=== PATIENT | female | born 1960 | race Caucasian/White ===

== ENCOUNTER 2018-08-22 16:50 | Emergency (ER) | payer OTHER ==
[2018-08-22 17:01] VITALS: BP 142/82
--- NOTE | 2018-08-22 17:50 | UC ---
Dental HPI - HPI Summary HPI Summary: 57 y/o female presents to the urgent care c/o left side of upper jaw pain w/ left ear pain since yesterday. Pt reports she has been with URI symptoms, nasal congestion, yellowish nasal discharge and PND for the past 8-10 days. Pt also has upper dentures and she is not sure if pain is in her upper palate or mainly in the ear. Pain is 4/10 associated w/ decrease hearing. She has not taken anything to alleviate symptoms. Pt states she was since by the dentist for dental hygiene. Pt denies fever, trismus, TMJ pain, VERA, dizziness, SOB, chest pain, abdominal pain, N/v/d. - History of Current Complaint Chief Complaint: UCGeneralIllness Stated Complaint: JAW PAIN Time Seen by Provider: 08/22/18 17:26 Hx Obtained From: Patient ?: No - Menopausal Onset/Duration: Gradual Onset, Lasting Days - 1 day, Still Present, Worse Since - today Severity: Moderate Pain Intensity: 4 Pain Scale Used: 0-10 Numeric Aggravating Factor(s): Chewing Alleviating Factor(s): Nothing Related History: Swelling - mild - Allergies/Home Medications Home Medications: Home Medications Lisinopril 10 mg PO DAILY WITH MEAL 08/22/18 [History Confirmed 08/22/18] PMH/Surg Hx/FS Hx/Imm Hx Previously Healthy: Yes Endocrine History: Dyslipidemia Cardiovascular History: Hypertension - Surgical History Surgical History: Yes Surgery Procedure, Year, and Place: 1987 ovarian cysts. 1997 gall bladder. instestinal blockage withreduction 1997. unsucessful tubal - Family History Known Family History: Positive: Hypertension, Diabetes - Social History Occupation: Employed Full-time Lives: With Family Alcohol Use: Weekly Substance Use Type: None Smoking Status (MU): Former Smoker When Did the Patient Quit Smoking/Using Tobacco: 16 yrs ago Review of Systems All Other Systems Reviewed And Are Negative: Yes Constitutional: Positive: Negative Skin: Positive: Negative Eyes: Positive: Negative ENT: Positive: Dental Pain - left upper jaw pain, Ear Ache - left ear pain, Nasal Discharge - clear, Sinus Congestion Respiratory: Positive: Negative Cardiovascular: Positive: Negative Gastrointestinal: Positive: Negative Genitourinary: Positive: Negative Motor: Positive: Negative Neurovascular: Positive: Negative Musculoskeletal: Positive: Negative Neurological: Positive: Negative Psychological: Positive: Negative Is Patient Immunocompromised?: No Physical Exam - Summary Physical Exam Summary: Vital Signs Reviewed: Yes General: Well-Appearing, Well-Nourished female sitting in the examining table w/ o any respiratory or pain distress Eyes: Positive: Conjunctiva Clear - PERRLA, EOMI, ENT: Positive: Normal ENT inspection, Hearing grossly normal, Pharynx normal, Left TM injected with erythema and crusting yellowish discharge, Rt TM WNL. - B/ L external ear canals clear,. Negative: Tonsillar swelling, Tonsillar exudate, Trismus Dental: Positive: Gross Decay/Caries w/ fracture molar #14 after removal of partail denture with possible Abscess due to gingival swelling and erythema, tender to percussion. involves tissue surrounding this molar #14, Cervical Lymphadenopathy - anterior Respiratory: Positive: Chest non-tender, Lungs clear, Normal breath sounds, No respiratory distress Cardiovascular: Positive: RRR, No Murmur, Pulses Normal, Brisk Capillary Refill Abdomen Description: Positive: Nontender, No Organomegaly, Soft. Negative: CVA Tenderness (R), CVA Tenderness (L) Bowel Sounds: Positive: Present Musculoskeletal: Positive: Strength Intact, ROM Intact, No Edema Neurological Exam: Normal Psychological Exam: Normal Skin Exam: Normal Triage Information Reviewed: Yes Vital Signs: Initial Vital Signs Temp 98.5 F 08/22/18 16:54 Pulse 91 08/22/18 16:54 Resp 18 08/22/18 16:54 BP 142/82 08/22/18 16:54 Pulse Ox 98 08/22/18 16:54 Dental Complaint Course/Dx - Course Course Of Treatment: 57 y/o female presents to the urgent care c/o left side of upper jaw pain w/ left ear pain since yesterday. Pt reports she has been with URI symptoms, nasal congestion, yellowish nasal discharge and PND for the past 8 -10 days. Pt also has upper dentures and she is not sure if pain is in her upper palate or mainly in the ear. Pain is 4/10 associated w/ decrease hearing. She has not taken anything to alleviate symptoms. Pt states she was since by the dentist for dental hygiene. Pt denies fever, trismus, TMJ pain, VERA, dizziness, SOB, chest pain, abdominal pain, N/v/d.Pt w/ possible dental abscess around molar #14 and left otitis Media on examination.Pt Rx Amoxicillin PO and Naproxen PO for pain. Pt strongly advised to f/u with Dentist as soon as possible further evaluation and treatment and ENT if not improvent on her symtoms. Pt's BP is elevated today advised to decrease salt in diet, monitor BP and f/u with PCP for further management. Pt understood and agreed with plan of care. Left the clinic ambulating. - Differential Dx/Diagnosis Differential Diagnosis/Dx: Dental Abscess, Gingivitis, Odontogenic Pain, Peridontic Disease, Peritonsillar Abcess, Pharyngitis, TMJ Syndrome, Tonsillitis Provider Diagnosis: Dental abscess, Left otitis media, Uncontrolled hypertension Discharge - Sign-Out/Discharge Documenting (check all that apply): Patient Departure - D/C home All imaging exams completed and their final reports reviewed: No Studies - Discharge Plan Condition: Stable Disposition: HOME Prescriptions: Amoxicillin PO (*) [Amoxicillin 875 MG (*)] 875 mg PO BID #20 tab Ibuprofen TAB* [Motrin TAB* 600 MG] 600 mg PO Q6H PRN #30 tab PRN Reason: Pain Patient Education Materials: Dental Abscess (ED), Ear Infection (ED) Referrals: Colton Martinez MD [Primary Care Provider] - 2 Days Pancho Quach MD [Medical Doctor] - 3 Days Additional Instructions: 1-Please take full course of antibiotic to avoid resistance to treat your left otitis Media and possible dental abscess. Please take yogurt with probiotics or Culturelle to protect your GI system 2- Take Ibuprofen PO q6-8hrs instructed after meals to alleviate pain and swelling. 3- F/u with your Dentist or ENT DR Quach if not improvement of symptoms for further evaluation and treatment. 4-Your BP is elevated today. please decrease salt in your diet, monitor BP and if it continues to be elevated please f/u with your PCP for further management. - Billing Disposition and Condition Condition: STABLE Disposition: Home
== END 2018-08-22 18:02 | disposition home or self-care (01) ==
LOC: UCEAST 16:50
DX: K04.7 Periapical abscess without sinus (principal); H66.92 Otitis media, unspecified, left ear; I10 Essential (primary) hypertension; Z87.891 Personal history of nicotine dependence
CPT/HCPCS: 99202; G0463

== ENCOUNTER 2018-11-09 12:43 | Day surgery (SDC) | payer OTHER ==
[~2018-11-09 12:43] MED LIST: Acetaminophen TAB* 325 MG PO PRN; Buffered Lidocaine 1% SYRIN* 1 ML/SYRINGE INTRADERM ONE
[2018-11-09] MEDS ORDERED: Phenylephrine OPHTH SOL 2.5%* 2 ML ONE (13:54)
[2018-11-09] MEDS ORDERED: acetaZOLAMIDE TAB* 250 MG ONE (13:54)
[2018-11-09] MEDS ORDERED: Proparacaine 0.5% OPHTH.SOL* 15 ML BTL ONE (13:54)
[2018-11-09] MEDS ORDERED: Neomycin/Polymy/Dex OPTH.SUSP* MAXITROL 0.1% 5 ML ONE (13:54)
[2018-11-09] MEDS ORDERED: Ketorolac 0.5% OPHTH (NF) 0.5 % 5 ML BTL ONE (13:54)
[2018-11-09] MEDS ORDERED: Povidone Iodine 5% OPTH* 30 ML BTL ONE (13:54)
[2018-11-09] MEDS ORDERED: Cyclopentolate 1% OPTH.SOL* 2 ML BTL ONE (13:54)
[2018-11-09] MEDS ORDERED: Lidocaine 2% EPI 1:200000 MPF*10-20 ML VIAL ONE (13:54)
[2018-11-09] MEDS ORDERED: Lidocaine 1%* 5 ML VIAL ONE (13:54)
[2018-11-09] MEDS ORDERED: Midazolam* 1 MG/ML 2 ML VIAL (2 MG) ONE ×2 (15:12→15:29)
[2018-11-09 16:16] VITALS: BP 116/77
--- NOTE | 2018-11-09 21:21 | OP ---
DATE OF OPERATION: 11/09/18 - [facility] DATE OF : 64 SURGEON: Jorge Alberto Vazquez M.D. PREOPERATIVE DIAGNOSIS: Cataract, right. POSTOPERATIVE DIAGNOSIS: Cataract, right. OPERATIVE PROCEDURE: Extracapsular cataract extraction with intraocular lens implant, right eye. DESCRIPTION OF PROCEDURE: The patient was brought to the operating room after being given 1/2% Alcaine with epinephrine drops in the preoperative area. The eye was prepped and draped in the usual sterile fashion. Sterile drape and eyelid speculum were placed. Again, topical 1/2% Alcaine with epinephrine was given. A paracentesis incision was made at the 9 o'clock position with the No.75 blade. Clear cornea incision 2.2 x 2.2-mm was created at the 12 o'clock position starting at the anterior limbus using the 2.2-mm keratome. The anterior chamber was irrigated with 0.4 mL of 1% non-preservative intracameral lidocaine and filled with DisCoVisc. A capsulorrhexis was completed using the cystotome and the Utrata forceps. Hydrodissection was performed with balanced salt solution. The lens nucleus was removed with the Phacoemulsification handpiece without incident. Cortex was removed with the irrigation-aspiration handpiece. The capsular bag was re-inflated using DisCoVisc and an [id number] implant was inserted with the shooter. The irrigation-aspiration handpiece was used to remove all residual DisCoVisc. The eye was refilled with balanced salt solution and the wound checked and found to be watertight. Topical Maxitrol drops were given. [id number]/[facility] #: [id number] [facility]
== END 2018-11-09 16:01 | disposition home or self-care (01) ==
LOC: OREAST 12:43
PROVIDERS: ATTEND Specialist
DX: H25.11 Age-related nuclear cataract, right eye (principal); H53.021 Refractive amblyopia, right eye; H04.123 Dry eye syndrome of bilateral lacrimal glands; K21.9 Gastro-esophageal reflux disease without esophagitis; R60.0 Localized edema; I10 Essential (primary) hypertension
CPT/HCPCS: A9270-GY; J2250; V2632

== ENCOUNTER 2018-11-16 09:12 | Day surgery (SDC) | payer OTHER ==
[2018-11-16] MEDS ORDERED: Midazolam* 1 MG/ML 5 ML VIAL (5 MG) ONE (11:17)
[2018-11-16 12:27] VITALS: BP 116/77
[2018-11-16] MEDS ORDERED: Propofol* 10 MG/ML 20 ML BTL ONE (12:32)
--- NOTE | 2018-11-16 13:11 | OP ---
DATE OF OPERATION: 11/16/2018. DATE OF : 1960. SURGEON: Jorge Alberto Vazquez M.D. PREOPERATIVE DIAGNOSIS: Cataract left eye. POSTOPERATIVE DIAGNOSIS: Cataract left eye. OPERATIVE PROCEDURE: Extracapsular cataract extraction with intraocular lens implant left eye. PROCEDURE: The patient was brought to the operating room after being given 1/2% Alcaine with epineph rine drops in the preoperative area. The eye was prepped and draped in the usual sterile fashion. S terile drape and eyelid speculum were placed. Again, topical 1/2% Alcaine with epinephrine was given . A paracentesis incision was made at the 3 o'clock position with the No.75 blade. Clear cornea inc ision 2.2 x 2.2-mm was created at the 6 o'clock position starting at the anterior limbus using the 2. 2-mm keratome. The anterior chamber was irrigated with 0.4 mL of 1% non-preservative intracameral li docaine and filled with DisCoVisc. A capsulorrhexis was completed using the cystotome and the Utrata forceps. Hydrodissection was performed with balanced salt solution. The lens nucleus was removed wi th the Phacoemulsification handpiece without incident. Cortex was removed with the irrigation-aspira tion handpiece. The capsular bag was re-inflated using DisCoVisc and an [id number] 21.5 implant was inse rted with the shooter, oriented to the 88 degree meridian. Horizontal reference florez were made with the patient in a seated position in the preoperative area. All measurements confirmed with ORA. Th e irrigation-aspiration handpiece was used to remove all residual DisCoVisc. The eye was refilled wi th balanced salt solution and the wound checked and found to be watertight. Topical Maxitrol drops w ere given. [id number]/[facility] #: [id number]
[2018-11-16] MEDS ORDERED: Cyclopentolate 1% OPTH.SOL* 2 ML BTL ONE (13:56)
[2018-11-16] MEDS ORDERED: Povidone Iodine 5% OPTH* 30 ML BTL ONE (13:56)
[2018-11-16] MEDS ORDERED: Lidocaine 1%* 5 ML VIAL ONE (13:56)
[2018-11-16] MEDS ORDERED: acetaZOLAMIDE TAB* 250 MG ONE (13:56)
[2018-11-16] MEDS ORDERED: Lidocaine 2% EPI 1:200000 MPF*10-20 ML VIAL ONE (13:56)
[2018-11-16] MEDS ORDERED: Proparacaine 0.5% OPHTH.SOL* 15 ML BTL ONE (13:56)
[2018-11-16] MEDS ORDERED: Neomycin/Polymy/Dex OPTH.SUSP* MAXITROL 0.1% 5 ML ONE (13:56)
[2018-11-16] MEDS ORDERED: Phenylephrine OPHTH SOL 2.5%* 2 ML ONE (13:56)
[2018-11-16] MEDS ORDERED: Ketorolac 0.5% OPHTH (NF) 0.5 % 5 ML BTL ONE (13:56)
== END 2018-11-16 12:12 | disposition home or self-care (01) ==
LOC: OREAST 09:12
PROVIDERS: ATTEND Specialist
DX: H25.12 Age-related nuclear cataract, left eye (principal); H04.123 Dry eye syndrome of bilateral lacrimal glands; H53.021 Refractive amblyopia, right eye; I10 Essential (primary) hypertension; K21.9 Gastro-esophageal reflux disease without esophagitis; R60.0 Localized edema
CPT/HCPCS: A9270-GY; J2250; J2704; V2787